=== PATIENT | male | born 1965 | race Caucasian/White ===

== ENCOUNTER 2018-09-05 10:40 | Emergency (ER) | payer OTHER ==
[2018-09-05 10:51] VITALS: BP 125/88; PULSE 77; TEMP 98.3; BMI 27.6
--- NOTE | 2018-09-05 11:35 | PDOC ---
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 He denies previous surgeries to his left shoulder. Patient describes the pain as a throb, worse with abduction and rates it at a 5 out of 10. He denies UE paresthesia. Patient denies attempting [id number] medications prior to arrival. Patient denies any relieving factor. 09/05/18 11:32 Past History - Travel Traveled outside of the country in the last 30 days: No Close contact w/someone who was outside of country & ill: No - Past Medical History Home Medications: Ambulatory Orders NK [No Known Home Medication] 09/05/18 COPD: No - Immunization History Immunization Up to Date: Yes - Suicide/Smoking/Psychosocial Hx Smoking History: Never smoked Hx Alcohol Use: No Drug/Substance Use Hx: No Review of Systems - Review of Systems Able to Perform ROS?: Yes Constitutional: No: Chills, Fever Respiratory: No: Cough, Shortness of Breath Cardiac (ROS): No: Chest Pain All Other Systems: Reviewed and Negative *Physical Exam - Vital Signs Last Vital Signs Temp Pulse Resp BP Pulse Ox 98.3 F 77 16 125/88 96 09/05/18 10:48 09/05/18 10:48 09/05/18 10:48 09/05/18 10:48 09/05/18 10:48 - Physical Exam Comments: Constitutional: VS stated, pt appears in no apparent distress; sitting in chair. Skin: Warm and dry. Intact, no lesions or excoriations. Head: Normocephalic; atraumatic Eyes: conjunctiva pink without injection or discharge. Throat: Oropharynx with pink and moist mucosa. Lungs: Bilateral breath sounds clear upon auscultation. Heart: Regular rate and rhythm, Musculoskeletal: Focused on the left shoulder. No deformity. Full ROM, 5/5 strength in UE groups. Radial pulses present, cap refill less than 2 seconds., sensation intact. Neurologic: Awake, alert. Conversation fluent. Psych: Appropriate affect 09/05/18 11:34 Moderate Sedation - Procedure Monitoring Vital Signs: Procedure Monitoring Vital Signs Temperature 98.3 F 09/05/18 10:48 Pulse Rate 77 09/05/18 10:48 Respiratory Rate 16 09/05/18 10:48 Blood Pressure 125/88 09/05/18 10:48 O2 Sat by Pulse Oximetry (%) 96 09/05/18 10:48 ED Treatment Course - RADIOLOGY Radiology Studies Ordered: Category Date Time Status SHOULDER-LEFT [RAD] Stat Radiology 09/05/18 11:26 Ordered 09/05/18 11:35 Pt's left shoulder xray was reviewed by myself as negative. Medical Decision Making - Medical Decision Making Pt declined need for sling or NSAIDs. Pt stated he wanted to return to work. 09/05/18 11:45 *DC/Admit/Observation/Transfer Diagnosis at time of Disposition: Sprain of shoulder, left Qualifiers: Encounter type: initial encounter Shoulder sprain type: unspecified sprain Qualified Code(s): S43.402A - Unspecified sprain of left shoulder joint, initial encounter - Discharge Dispostion Disposition: HOME Condition at time of disposition: Stable Decision to Admit order: No - Referrals Referrals: Kenji Acosta [Primary Care Provider] - Randy Heath MD [Staff Physician] - - Patient Instructions Printed Discharge Instructions: DI for Shoulder Sprain Additional Instructions: You can take ibuprofen 600 mg every 6 hours for your discomfort. Use your department's follow-up since this is Worker's Compensation however I'm going to provide you with the orthopedic surgeons contact information as a back up. - Post Discharge Activity
== END 2018-09-05 12:02 | disposition home or self-care (01) ==
LOC: JERFT 10:40
DX: S43.402A Unspecified sprain of left shoulder joint, initial encounter (principal); Y35.811A Legal intervention involving manhandling, law enforcement official injured, initial encounter; Y93.89 Activity, other specified; Y92.89 Other specified places as the place of occurrence of the external cause; Y99.0 Civilian activity done for income or pay
CPT/HCPCS: 73030-TC-LT-FY; 99281-25